=== PATIENT | male | born 1950 | race Caucasian/White ===

== ENCOUNTER 2016-09-14 10:28 | Observation (INO) | payer OTHER ==
[~2016-09-14] VITALS: Ht 175.3 cm; Wt 90.0 kg
[2016-09-14] VITALS (8 sets, daily range): BP systolic 151–215; BP diastolic 80–102; PULSE 52–73; RESP 18–20; TEMP 97.4–98.1; O2SAT 96–99
[~2016-09-14 10:28] MED LIST: UNKNOWN BP MED; UNKNOWN CHOLESTEROL
[2016-09-14] MEDS ORDERED: ASPIRIN 325 MG TAB PO ONE (11:00)
--- NOTE | 2016-09-14 11:04 | PD ---
HPI Chief Complaint: Cardiac Complaint Time Seen by Provider: 10:55 Travel History International Travel<30 days: No Contact w/Intl Traveler<30days: No Traveled to known affect area: No History of Present Illness HPI 65yo M with PMH of HTN, HLD presents to the ED with c/o chest pain that started about 2 hours ago. States it is midsternal, intermittent, lasting about 1 min each time, and nonradiating. Pressure like. Denies any sob, n/v, fever, cough , abdominal pain, focal weakness or numbness. 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 Denies cig smoking , or cocaine use. +Alcohol use. PFSH Past Medical History High Cholesterol: Yes Diminished Hearing: No GERD: Yes Hypertension: Yes Past Surgical History Other Surgery: Yes (LEFT HAND SURGERY) Social History Alcohol Use: Yes (2 DRINKS PER DAY) Tobacco Use: Yes (CIGARS ON OCCASSION) Substance Use: No Allergies-Medications (Allergen,Severity, Reaction): Coded Allergies: No Known Allergies (Verified , 12/15/12) Reported Meds & Prescriptions Reported Meds & Active Scripts Active Amlodipine (Amlodipine Besylate) 5 Mg Tab 5 Mg PO DAILY Reported Omeprazole 10 Mg Cap 10 Mg PO DAILY PRN Simvastatin 40 Mg Tab 40 Mg PO HS Metoprolol Tartrate 25 Mg Tab 25 Mg PO BID Zolpidem (Zolpidem Tartrate) 10 Mg Tab 10 Mg PO HS PRN Review of Systems Except as stated in HPI: all other systems reviewed are Neg Physical Exam Narrative GENERAL: 65yo M not in distress. SKIN: Focused skin assessment warm/dry. HEAD: Atraumatic. Normocephalic. EYES: Pupils equal and round. No scleral icterus. No injection or drainage. ENT: No nasal bleeding or discharge. Mucous membranes pink and moist. NECK: Trachea midline. No JVD. CARDIOVASCULAR: Regular rate and rhythm. No murmur appreciated. RESPIRATORY: No accessory muscle use. Clear to auscultation. Breath sounds equal bilaterally. GASTROINTESTINAL: Abdomen soft, non-tender, nondistended. MUSCULOSKELETAL: No obvious deformities. No clubbing. No cyanosis. No edema. NEUROLOGICAL: Awake and alert. No obvious cranial nerve deficits. Motor grossly within normal limits. Normal speech. PSYCHIATRIC: Appropriate mood and affect; insight and judgment normal. Data Data Last Documented VS Vital Signs Date Time Temp Pulse Resp B/P Pulse Ox O2 Delivery O2 Flow Rate FiO2 09/14/16 10:58 78 18 98 Room Air 09/14/16 10:30 97.7 183/87 Orders Basic Metabolic Panel (Bmp) (09/14/16 11:00) Ckmb (Isoenzyme) Profile (09/14/16 11:00) Complete Blood Count With Diff (09/14/16 11:00) Prothrombin Time / Inr (Pt) (09/14/16 11:00) Act Partial Throm Time (Ptt) (09/14/16 11:00) Troponin I (09/14/16 11:00) Chest, Single Ap (09/14/16 11:00) Aspirin (Aspirin) (09/14/16 11:00) Magnesium (Mg) (09/14/16 11:04) Electrocardiogram (09/14/16 10:46) CKMB (09/14/16 11:07) CKMB% (09/14/16 11:07) Admit Order (Ed Use Only) (09/14/16 13:45) Labs Laboratory Tests Test 09/14/16 11:07 White Blood Count 6.9 TH/MM3 Red Blood Count 5.02 MIL/MM3 Hemoglobin 15.8 GM/DL Hematocrit 46.1 % Mean Corpuscular Volume 91.8 FL Mean Corpuscular Hemoglobin 31.4 PG Mean Corpuscular Hemoglobin 34.2 % Concent Red Cell Distribution Width 12.4 % Platelet Count 210 TH/MM3 Mean Platelet Volume 8.8 FL Neutrophils (%) (Auto) 47.5 % Lymphocytes (%) (Auto) 36.1 % Monocytes (%) (Auto) 14.2 % Eosinophils (%) (Auto) 1.6 % Basophils (%) (Auto) 0.6 % Neutrophils # (Auto) 3.3 TH/MM3 Lymphocytes # (Auto) 2.5 TH/MM3 Monocytes # (Auto) 1.0 TH/MM3 Eosinophils # (Auto) 0.1 TH/MM3 Basophils # (Auto) 0.0 TH/MM3 CBC Comment DIFF FINAL Differential Comment Prothrombin Time 10.5 SEC Prothromb Time International 1.0 RATIO Ratio Activated Partial 27.2 SEC Thromboplast Time Sodium Level 139 MEQ/L Potassium Level 4.4 MEQ/L Chloride Level 106 MEQ/L Carbon Dioxide Level 26.9 MEQ/L Anion Gap 6 MEQ/L Blood Urea Nitrogen 20 MG/DL Creatinine 0.88 MG/DL Estimat Glomerular Filtration 87 ML/MIN Rate Random Glucose 106 MG/DL Calcium Level 9.4 MG/DL Magnesium Level 2.2 MG/DL Total Creatine Kinase 122 U/L Creatine Kinase MB 0.9 NG/ML Troponin I LESS THAN 0.02 NG/ML MDM Medical Decision Making Medical Screen Exam Complete: Yes Emergency Medical Condition: Yes Interpretation(s) EKG: NSR 74bpm. TWI III. ?U wave. Differential Diagnosis ACS vs. pneumonia vs. musculoskeletal pain Narrative Course 65yo M with left sided chest pain that is atypical. Labs reviewed, no leukocytosis. Troponin negative. CXR showed no acute cardiopulmonary disease. Pt given aspirin. Currently chest pain free. Pt does have risk factors so will admit to chest pain center for serial EKG and cardiac enzymes. Diagnosis Primary Impression: Chest pain Qualified Code: R07.9 - Chest pain, unspecified type Admitting Information Admitting Physician Requests: Observation Scripts Amlodipine 5 Mg Tab5 Mg PO DAILY #30 TAB Ref 1 Prov:Tonya Villegas 09/14/16 Le Murphy DO Sep 14, 2016 11:04
[2016-09-14] MEDS ORDERED: METO25TA3 PO (11:05)
[2016-09-14] MEDS ORDERED: SIMV40TA PO (11:05)
[2016-09-14] MEDS ORDERED: OMEP10CA PO (11:05)
[2016-09-14] MEDS ORDERED: ZOLP10TA3 PO (11:05)
[2016-09-14 11:39] LABS: AUTOMATED NEUTROPHIL # 3.3 TH/MM3 (1.8-7.7); BASOPHIL % 0.6 % (0.0-2.0); EOSINOPHIL # 0.1 TH/MM3 (0-0.4); EOSINOPHIL % 1.6 % (0.0-4.0); HEMATOCRIT 46.1 % (39.0-51.0); HEMO FLAGS DIFF FINAL; LYMPH % 36.1 % (9.0-44.0); LYMPHOCYTE # 2.5 TH/MM3 (1.0-4.8); MEAN CELL VOLUME 91.8 FL (80.0-100.0); MEAN CORPUSCULAR HEMOGLOBIN 31.4 PG (27.0-34.0); MEAN CORPUSCULAR HGB CONC 34.2 % (32.0-36.0); MONO % 14.2 % (0.0-8.0); NEUT % 47.5 % (16.0-70.0); PLATELET COUNT 210 TH/MM3 (150-450); RED BLOOD COUNT 5.02 MIL/MM3 (4.50-5.90); RED CELL DISTRIBUTION WIDTH 12.4 % (11.6-17.2); WHITE BLOOD COUNT 6.9 TH/MM3 (4.0-11.0)
[2016-09-14 11:50] LABS: APTT (PATIENT) 27.2 SEC (24.3-30.1); PROTHROMBIN TIME - PATIENT 10.5 SEC (9.8-11.6)
--- NOTE | 2016-09-14 11:55 | RADRPT ---
EXAM DATE/TIME: 09/14/2016 11:21 [facility] COMPARISON: No previous studies available for comparison. INDICATIONS : Chest pain and tightness this morning. MEDICAL HISTORY : Hypertension. Hypercholesterolemia. Gastroesophageal reflux disease. SURGICAL HISTORY : None. ENCOUNTER: Initial ACUITY: 1 day PAIN SCORE: 3/10 LOCATION: Bilateral chest FINDINGS: A single view of the chest demonstrates the lungs to be symmetrically aerated without evidence of mas s, infiltrate or effusion. The cardiomediastinal contours are unremarkable. Degenerative changes are noted within the thoracic spine. CONCLUSION: No acute cardiopulmonary disease. Degenerative changes involving the thoracic spine. David Reeder MD on September 14, 2016 at 11:53 Board Certified Radiologist. This report was verified electronically.
[2016-09-14 12:05] LABS: ANION GAP 6 MEQ/L (5-15); BICARBONATE 26.9 MEQ/L (21.0-32.0); BLOOD UREA NITROGEN 20 MG/DL (7-18); CHLORIDE 106 MEQ/L (98-107); CREATINE KINASE 122 U/L (39-308); GLOMERULAR FILTRATION RATE 87 ML/MIN (>89); SODIUM (NA) 139 MEQ/L (136-145)
[2016-09-14 12:12] LABS: POTASSIUM 4.4 MEQ/L (3.5-5.1)
[2016-09-14 12:25] LABS: CKMB 0.9 NG/ML (0.5-3.6)
--- NOTE | 2016-09-14 14:41 | HHI.HP ---
HPI Primary Care Physician Cade Pryor MD Chief Complaint Chest tightness History of Present Illness 65-year-old male history of hypertension and hyperlipidemia presents to emergency room for further evaluation of chest tightness. Onset 8 AM this morning while reading. Pain began in bilateral jaw described as an ache, duration of jaw pain approximately 2-3 minutes. He then developed substernal chest tightness. No radiation of chest tightness. Duration of chest tightness approximately 30 minutes, then pain quickly subsided. No known precipitating or relieving factors. (Tonya Villegas) Review of Systems General: No fatigue,weakness, fever, chills, recent illness, or change in appetite. Has been his general state of health. HEENT: No [place], no vision changes, no nasal congestion or drainage, no dysphasia CV: As stated above. No palpitations. Endorses compliance with medication although states he uses table salt excessively. RESP: No SOB, cough, or wheeze GI: No nausea, vomiting, bowel changes, diarrhea, constipation, pain, distention. Intentional weight loss over the last few months. He has increased his daily activity and changed his diet. : No dysuria, urgency, frequency EXT: No lower leg edema, no paraesthesias MS: No discomfort or change in ROM NEURO: No LOC, motor/sensory deficits PSYCH: No anxiety, depression, or situational stress SKIN: No rashes, no concerning lesions (Tonya Villegas) Past Family Social History Allergies: Coded Allergies: No Known Allergies (Verified , 12/15/12) Past Medical History Hypertension, hyperlipidemia, GERD Past Surgical History Left hand surgery Reported Medications Reported Omeprazole 10 Mg Cap 10 Mg PO DAILY PRN Simvastatin 40 Mg Tab 40 Mg PO HS Metoprolol Tartrate 25 Mg Tab 25 Mg PO BID Zolpidem (Zolpidem Tartrate) 10 Mg Tab 10 Mg PO HS PRN Family History Noncontributory for early onset cardiovascular disease Social History Known hypertension and hyperlipidemia. No known diabetes or personal coronary artery disease. Quit smoking 30 years ago, prior to quitting smoke 2 packs daily. Denies any alcohol or illegal drug use. , retired. Past cardiac testing No recent cardiac testing, years ago he had a exercise stress test unremarkable. (Tonya Villegas) Physical Exam Vital Signs Vital Signs Date Time Temp Pulse Resp B/P Pulse Ox O2 Delivery O2 Flow Rate FiO2 09/14/16 10:58 78 18 98 Room Air 09/14/16 10:30 97.7 73 20 183/87 99 Room Air Physical Exam GENERAL: Alert WN, WD, NAD, pleasant, male HEAD: NC, AT EYES: Sclera clear, conjunctiva without injection, pupils equal and round ENT: Mucous membranes pink and moist NECK: Supple, no masses, trachea midline CV: RRR, without murmur, rub, gallop, no JVD, S1-S2 no S3-S4. RESP: Clear lungs throughout bilateral, no crackles, wheeze, rhonchi, symmetrical chest rise, nonlabored, able to speak in full sentences ABD: Soft, NT, ND, no masses, positive bowel tones EXT: Pulses +24, no dependent edema MS: Normal tone 4 extremities, nontender, no obvious deformities, full range of motion NEURO: CN II through CN XII grossly intact, motor strength 5/5, gait WNL PSYCH: A+O 3, pleasant affect, appropriate speech, appropriate mood and affect , insight and judgment SKIN: Normal turgor, normal texture, no lesions, no rashes, brisk cap refill, even hair distribution Laboratory Laboratory Tests Test 09/14/16 11:07 White Blood Count 6.9 Red Blood Count 5.02 Hemoglobin 15.8 Hematocrit 46.1 Mean Corpuscular Volume 91.8 Mean Corpuscular Hemoglobin 31.4 Mean Corpuscular Hemoglobin 34.2 Concent Red Cell Distribution Width 12.4 Platelet Count 210 Mean Platelet Volume 8.8 Neutrophils (%) (Auto) 47.5 Lymphocytes (%) (Auto) 36.1 Monocytes (%) (Auto) 14.2 Eosinophils (%) (Auto) 1.6 Basophils (%) (Auto) 0.6 Neutrophils # (Auto) 3.3 Lymphocytes # (Auto) 2.5 Monocytes # (Auto) 1.0 Eosinophils # (Auto) 0.1 Basophils # (Auto) 0.0 CBC Comment DIFF FINAL Differential Comment Prothrombin Time 10.5 Prothromb Time International 1.0 Ratio Activated Partial 27.2 Thromboplast Time Sodium Level 139 Potassium Level 4.4 Chloride Level 106 Carbon Dioxide Level 26.9 Anion Gap 6 Blood Urea Nitrogen 20 Creatinine 0.88 Estimat Glomerular Filtration 87 Rate Random Glucose 106 Calcium Level 9.4 Magnesium Level 2.2 Total Creatine Kinase 122 Creatine Kinase MB 0.9 Troponin I LESS THAN 0.02 (Tonya Villegas) Result Diagram: 09/14/16 1107 09/14/16 1107 Imaging Last Impressions Chest X-Ray 09/14/16 1100 Signed Impressions: Service Date/Time: , September 14, 2016 11:21 - CONCLUSION: No acute cardiopulmonary disease. Degenerative changes involving the thoracic spine. David Reeder MD Course EKGs Normal sinus rhythm, normal axis and no ST or T-segment changes, U-wave leads V4 -V6 (Tonya Villegas) Assessment and Plan Assessment and Plan #1 Chest painadmitted to chest pain center. Will rule out with 2 sets of EKGs and cardiac enzymes before proceeding with exercise stress test. Seen and evaluated by Dr. Fidel Fleming. Naturally if stress test unremarkable he will later discharged this evening with follow-up with PCP. #2 Hypertensionclonidine 0.2 mg 1 dose now, amlodipine 5 mg 1 dose, continue metoprolol with possible amlodipine 5 mg daily prescription upon discharge. Discussed in length importance of following a low sodium diet, encouraged keeping a blood pressure log, continuing with daily activity, and keeping all follow-up appointments with PCP. (Tonya Villegas) Assessment and Plan Agree with above. No evidence of ischemia by enzymes or ECG. Exam is normal ecept elevated BP, Will plan treadmill stress (Fidel Fleming MD) Tonya Villegas Sep 14, 2016 14:41 Fidel Fleming MD Sep 14, 2016 15:54
[2016-09-14] MEDS ORDERED: ACETAMINOPHEN 500 MG CPLT PO PRN (14:45)
[2016-09-14] MEDS ORDERED: ONDANSETRON HCL 4 MG/2 ML VIAL IV PRN (14:45)
[2016-09-14] MEDS ORDERED: SODIUM CHLORIDE 0.9% FLUSH 10 ML FLUSH IV FLUSH PRN (14:45)
[2016-09-14] MEDS ORDERED: NITROGLYCERIN 0.4 MG SL 25 TABS/BTL SL PRN (14:45)
--- NOTE | 2016-09-14 15:10 | EKG ---
Date Performed: 09/14/2016 Time Performed: 10:46:48 PTAGE: 65 years EKG: Sinus rhythm NORMAL ECG PREVIOUS TRACING : 07/22/2016 23.26 DOCTOR: Dc Serrano Interpretating Date/Time 09/14/2016 15:08:42
[2016-09-14] MEDS ORDERED: amLODIPine BESYLATE 5 MG TAB PO ONE (15:45)
[2016-09-14] MEDS ORDERED: cloNIDine HCL 0.2 MG TAB PO ONE (15:45)
[2016-09-14 16:19] LABS: CREATINE KINASE 91 U/L (39-308)
[2016-09-14] MEDS ORDERED: cloNIDine HCL 0.1 MG TAB PO PRN ×2 (17:15→19:15)
[2016-09-14] MEDS ORDERED: AMLO5TAB2 PO (19:10)
[2016-09-14] MEDS: LISINOPRIL 10 MG TAB PO SCH (20:11)
[2016-09-14] MEDS: SODIUM CHLORIDE 0.9% FLUSH 10 ML FLUSH IV FLUSH SCH (20:11)
[2016-09-14] MEDS: METOPROLOL TARTRATE 25 MG TAB PO SCH (20:11)
[2016-09-14 20:33] LABS: CREATINE KINASE 88 U/L (39-308)
[2016-09-14] MEDS ORDERED: PRAVASTATIN SOD 80 MG TAB PO SCH (21:00)
[2016-09-15 00:17] VITALS: BP 116/63; PULSE 59; RESP 18; TEMP 98.5; O2SAT 98
[2016-09-15 05:33] VITALS: BP 165/79; PULSE 59; RESP 18; TEMP 98.4; O2SAT 95
[2016-09-15 08:02] VITALS: O2SAT 98
[2016-09-15 08:10] VITALS: BP 193/88; PULSE 60; RESP 15; TEMP 98.6; O2SAT 96
[2016-09-15] MEDS: METOPROLOL TARTRATE 25 MG TAB PO SCH (08:13)
[2016-09-15] MEDS: LISINOPRIL 10 MG TAB PO SCH (08:14)
[2016-09-15] MEDS ORDERED: amLODIPine BESYLATE 5 MG TAB PO SCH (09:00)
[2016-09-15] MEDS: SODIUM CHLORIDE 0.9% FLUSH 10 ML FLUSH IV FLUSH SCH (09:00)
[2016-09-15] MEDS ORDERED: PANTOPRAZOLE SOD 20 MG DELAYED RELEASE TAB PO SCH (09:00)
[2016-09-15] MEDS ORDERED: ASPIRIN 325 MG TAB PO SCH (09:00)
--- NOTE | 2016-09-15 09:34 | EKG ---
Date Performed: 09/14/2016 Time Performed: 16:23:30 PTAGE: 65 years EKG: SINUS BRADYCARDIA MINIMAL VOLTAGE CRITERIA FOR LVH, CONSIDER NORMAL VARIANT BORDERLINE ECG PREVIOUS TRACING : 09/14/2016 10.46 Since previous tracing, no significant change noted DOCTOR: Fidel Fleming Interpretating Date/Time 09/15/2016 09:32:02
[2016-09-15 10:30] VITALS: PULSE 57
[2016-09-15] MEDS ORDERED: REGADENOSON INJ 0.4 MG/5 ML SYR ONE (13:25)
--- NOTE | 2016-09-15 14:58 | RADRPT ---
EXAM DATE/TIME: 09/15/2016 12:56 [facility] COMPARISON: No previous studies available for comparison. INDICATIONS : Substernal chest pain radiating to jaw. Angina. DOSE: 26.5 mCi Tc99m Myoview at stress. 8.2 mCi Tc99m Myoview at rest. 0.4 mg Lexiscan STRESS SYMPTOMS: Dyspnea. EJECTION FRACTION: 66% MEDICAL HISTORY : Hypertension. Gastroesophageal reflux disease. SURGICAL HISTORY : Left hand. ENCOUNTER: Initial ACUITY: 1 day PAIN SCALE: 6/10 LOCATION: Substernal chest TECHNIQUE: The patient underwent pharmacologic stress with infusion of prescribed dose. Continuous ECG tracing was monitored during stress. Gated SPECT imaging was performed after stress and conventional SPECT i maging was performed at rest. The examination was performed on a SPECT/CT scanner, both attenuation and non-corrected datasets were reviewed. FINDINGS: DISTRIBUTION: The maximum perfused segment at stress is in the posterobasal wall. PERFUSION STUDY: There is a small sized area of mildly diminished relative perfusion involving the inferolateral wall extending to the cardiac apex. No definite redistribution GATED STUDY: There is intact wall motion and thickening without hypokinetic or dyskinetic segments. CONCLUSION: Small size, mild severity inferolateral perfusion abnormality without evidence of redistribution RISK CATEGORY: Low (<1% Annual Mortality Rate) Mateo Caballero MD on September 15, 2016 at 14:52 Board Certified Radiologist. This report was verified electronically.
[2016-09-15 15:00] VITALS: BP 135/75; PULSE 69; RESP 17; TEMP 97.6; O2SAT 98
--- NOTE | 2016-09-15 15:10 | HHI.DCPOC ---
Discharge Care Plan Diagnosis: (1) Chest pain (2) Hypertension (3) Hyperlipidemia (4) GERD (gastroesophageal reflux disease) Goals to Promote Your Health * To prevent worsening of your condition and complications * To maintain your health at the optimal level Directions to Meet Your Goals Take your medications as prescribed Follow your dietary instruction Follow activity as directed Keep your appointments as scheduled Take your immunizations and boosters as scheduled If your symptoms worsen call your PCP, if no PCP go to Urgent Care Center or Emergency Room Smoking is Dangerous to Your Health. Avoid second hand smoke Call the 24-hour hour crisis hotline for domestic abuse at Robert Vogt Sep 15, 2016 15:10
--- NOTE | 2016-09-15 15:31 | TR ---
Date Performed: 09/15/2016 Time Performed: 09:24:48 DOCTOR: Fidel Fleming DRUG LIST: CLINICAL HISTORY: REASON FOR TEST: Chest pain REASON FOR ENDING: OBSERVATION: CONCLUSION: ATTEMPTED GALO PROTOCOL. NO CP. TEST STOPPED PRIOR TO REACHING GOAL HR SECONDARY TO SOB AND LEG FATIGUE.WILL GET LEXISCAN.Maximum FE=556 % Max HR Achieved=72.0% Maximum DU=345/88 Total Exercise Time=8:32 COMMENTS: Non diagnostic test due to failure to reach target HR.
--- NOTE | 2016-09-20 07:41 | TR ---
Date Performed: 09/15/2016 Time Performed: 13:41:21 DOCTOR: Fidel Fleming DRUG LIST: CLINICAL HISTORY: ANGINA REASON FOR TEST: Angina REASON FOR ENDING: OBSERVATION: CONCLUSION: Lexiscan stress test was performed under standard four minute protocol. Radionuclid e was injected one minute prior to ending the test. No electrocardiographic abormalities were present to suggest ischemia. Nuclear imaging and interpretation are pending. COMMENTS:
== END 2016-09-15 15:38 | disposition home or self-care (01) ==
LOC: NEPC 10:28 → NEDA 13:46 → NEPGCP 15:19
PROVIDERS: ADMIT Internal Medicine Cardiovascular Disease; ATTEND Internal Medicine Cardiovascular Disease
DX: R07.89 Other chest pain (principal); I10 Essential (primary) hypertension; R00.1 Bradycardia, unspecified; R07.2 Precordial pain; I20.9 Angina pectoris, unspecified; R68.84 Jaw pain; E78.5 Hyperlipidemia, unspecified; E78.00 Pure hypercholesterolemia, unspecified; K21.9 Gastro-esophageal reflux disease without esophagitis; F17.290 Nicotine dependence, other tobacco product, uncomplicated; Z79.899 Other long term (current) drug therapy
CPT/HCPCS: 71010; 78452; 80048; 82550; 82552; 83735; 84484; 85025; 85610; 85730; 93005; 93017; 99285; A9502; G0378; J2785